=== PATIENT | male | born 1970 | race Caucasian/White ===

== ENCOUNTER 2022-06-04 04:04 | Inpatient (IN) | payer OTHER ==
[~2022-06-04] VITALS: Ht 175.3 cm; Wt 83.9 kg
[2022-06-04 06:48] LABS: HEMATOCRIT 44.1 % (36.7-47.1); MEAN CORPUSCULAR HEMOGLOBIN 30.7 uug (23.8-33.4); MEAN CORPUSCULAR VOLUME 93.1 fL (73.0-96.2); PLATELET COUNT (AUTO) 454 K/uL (152-348)
[2022-06-04 07:09] LABS: ETHANOL < 3 MG/DL (0-0)
[2022-06-04 07:16] LABS: ALANINE AMINOTRANSFERASE 35 U/L (16-63); ALKALINE PHOSPHATASE 98 U/L (50-136); ASPARTATE AMINOTRANSFERASE 21 U/L (15-37); BILIRUBIN,DIRECT 0.1 mg/dL (0.0-0.2); BILIRUBIN,TOTAL 0.3 mg/dL (0.2-1.0); CARBON DIOXIDE 30 mmol/L (21-32); CHLORIDE 104 mmol/L (98-107); CREATININE 0.9 mg/dL (0.6-1.3); GLUCOSE 103 mg/dL (74-106); TOTAL PROTEIN, SERUM 6.4 g/dL (6.4-8.2); UREA NITROGEN, BLOOD 11 mg/dL (7-18)
[2022-06-04 08:11] LABS: *BILIRUBIN,URIN NEGATIVE (NEGATIVE); *BLOOD, URINE NEGATIVE (NEGATIVE); *CLARITY,URINE CLEAR (CLEAR); *COLOR,URINE YELLOW (YELLOW); *KETONES,URINE NEGATIVE (NEGATIVE); *UROBILINOGEN,URINE 0.2 E.U./dl (NORMAL); LEUKOCYTE ESTERASE ,URINE NEGATIVE (NEGATIVE); NITRITE, URINE NEGATIVE (NEGATIVE); PH,URINE 6.5 (5.0-8.0); UGLUCOSE NEGATIVE (NEGATIVE)
[2022-06-04] MEDS: IV NORMAL SALINE 500 ML BAG IV ONE ×2 (08:15→10:29)
[2022-06-04 08:31] LABS: *AMPHETAMINE, URINE NEGATIVE (NEGATIVE); *CANNABINOID, URINE POSITIVE (NEGATIVE); *COCCAINE, URINE NEGATIVE (NEGATIVE); *OPIATE, URINE NEGATIVE (NEGATIVE); *PHENCYCLIDINE SCREEN,URINE NEGATIVE (NEGATIVE)
[2022-06-04 08:41] LABS: THYROID STIMULATING HORMONE 2.459 mIU/mL (0.358-3.740)
[2022-06-04] MEDS: THIAMINE HCL INJ 100 MG in IV DEXTROSE 5% 50 ML IV SCH (09:30)
[2022-06-04] MEDS: FOLIC ACID 1 MG in IV DEXTROSE 5% 50 ML IV SCH (09:30)
[2022-06-04] MEDS ORDERED: CEFTRIAXONE 1 G in IV DEXTROSE 5% 50 ML IV SCH (09:45)
[2022-06-04] MEDS ORDERED: CEFTRIAXONE /D5W 50ML IVPB **ER PYXIS IV ONE (10:30)
[2022-06-04] MEDS ORDERED: LORAZEPAM 2 MG/1 ML VIAL IM ONE (16:30)
[2022-06-04] MEDS ORDERED: LORAZEPAM 2 MG/1 ML VIAL ONE (16:36)
[2022-06-04 17:38] LABS: ACETAMINOPHEN < 2.0 ug/mL (10-30)
[2022-06-04] MEDS ORDERED: ACETAMINOPHEN 325 MG TABLET PO PRN (17:45)
[2022-06-04] MEDS ORDERED: IV 1/2NS 1000 ML 1,000 ML IV PRN (17:45)
[2022-06-04] MEDS ORDERED: HYDROCODONE/APAP 5-325MG TABLET PO PRN (17:45)
[2022-06-04] MEDS ORDERED: TEMAZEPAM 15 MG CAPSULE PO PRN (17:45)
[2022-06-04] MEDS ORDERED: ONDANSETRON 4 MG/2 ML VIAL IV PRN (17:45)
[2022-06-04] MEDS: LORAZEPAM 2 MG/1 ML VIAL IV PRN (18:24)
[2022-06-04 20:00] VITALS: BP 123/83
[2022-06-05 04:00] VITALS: BP 126/62
[2022-06-05] MEDS: PANTOPRAZOLE SODIUM 40 MG TABLET.DR PO SCH ×2 (06:43→09:08)
[2022-06-05 07:58] LABS: HEMATOCRIT 42.1 % (36.7-47.1); MEAN CORPUSCULAR HEMOGLOBIN 31.5 uug (23.8-33.4); MEAN CORPUSCULAR VOLUME 92.3 fL (73.0-96.2); PLATELET COUNT (AUTO) 485 K/uL (152-348)
[2022-06-05 08:23] LABS: BILIRUBIN,TOTAL 0.5 mg/dL (0.2-1.0); CREATININE 0.8 mg/dL (0.6-1.3); MAGNESIUM 2.3 mg/dL (1.8-2.4); PHOSPHOROUS 3.6 mg/dL (2.5-4.9); POTASSIUM 4.3 mmol/L (3.5-5.1); TOTAL PROTEIN, SERUM 6.3 g/dL (6.4-8.2)
[2022-06-05] MEDS: MULTIVITAMINS,THERAPEUTIC TABLET PO SCH (09:08)
[2022-06-05] MEDS: ASPIRIN 81 MG TAB.CHEW PO SCH (13:47)
[2022-06-05] MEDS: ENOXAPARIN SODIUM 40 MG/0.4 ML DISP.SYRIN SQ SCH (13:53)
[2022-06-05 15:55] VITALS: BP 104/71
[2022-06-05] MEDS: LORAZEPAM 2 MG/1 ML VIAL IV PRN (18:39)
[2022-06-05 20:00] VITALS: BP 101/59
[2022-06-05] MEDS: ATORVASTATIN 20 MG TABLET PO SCH (21:12)
[2022-06-06 04:00] VITALS: BP 105/65
[2022-06-06] MEDS: IV NS 1000 ML 1,000 ML IV PRN ×2 (05:12→23:33)
[2022-06-06 06:32] LABS: HEMATOCRIT 42.4 % (36.7-47.1); MEAN CORPUSCULAR HEMOGLOBIN 31.6 uug (23.8-33.4); MEAN CORPUSCULAR VOLUME 92.2 fL (73.0-96.2); PLATELET COUNT (AUTO) 477 K/uL (152-348)
[2022-06-06 07:04] LABS: CREATININE 0.9 mg/dL (0.6-1.3); MAGNESIUM 2.1 mg/dL (1.8-2.4); POTASSIUM 3.8 mmol/L (3.5-5.1)
[2022-06-06] MEDS: MULTIVITAMINS,THERAPEUTIC TABLET PO SCH (08:09)
[2022-06-06] MEDS: ASPIRIN 81 MG TAB.CHEW PO SCH (08:09)
[2022-06-06] MEDS: ENOXAPARIN SODIUM 40 MG/0.4 ML DISP.SYRIN SQ SCH (08:11)
[2022-06-06 11:56] VITALS: BP 100/66
[2022-06-06 15:17] VITALS: BP 105/94
[2022-06-06 20:00] VITALS: BP 118/83
[2022-06-06] MEDS: ATORVASTATIN 20 MG TABLET PO SCH (20:43)
[2022-06-07 04:00] VITALS: BP 122/72
[2022-06-07] MEDS: PANTOPRAZOLE SODIUM 40 MG TABLET.DR PO SCH (06:16)
[2022-06-07] MEDS: MULTIVITAMINS,THERAPEUTIC TABLET PO SCH (08:23)
[2022-06-07] MEDS: ASPIRIN 81 MG TAB.CHEW PO SCH (08:23)
[2022-06-07] MEDS: ENOXAPARIN SODIUM 40 MG/0.4 ML DISP.SYRIN SQ SCH (08:24)
[2022-06-07 11:55] VITALS: BP 110/72
[2022-06-07] MEDS: ATORVASTATIN 20 MG TABLET PO SCH (20:27)
[2022-06-07 20:32] VITALS: BP 128/85
[2022-06-08 04:50] VITALS: BP 122/82
[2022-06-08] MEDS: PANTOPRAZOLE SODIUM 40 MG TABLET.DR PO SCH (06:01)
[2022-06-08] MEDS: MULTIVITAMINS,THERAPEUTIC TABLET PO SCH (08:00)
[2022-06-08] MEDS: ASPIRIN 81 MG TAB.CHEW PO SCH (08:00)
[2022-06-08] MEDS: ENOXAPARIN SODIUM 40 MG/0.4 ML DISP.SYRIN SQ SCH (08:02)
[2022-06-08 11:15] VITALS: BP 106/73
[2022-06-08 15:25] VITALS: BP 109/70
[2022-06-08] MEDS: ATORVASTATIN 20 MG TABLET PO SCH (20:13)
[2022-06-08 20:21] VITALS: BP 118/78
[2022-06-08] MEDS ORDERED: QUETIAPINE FUMARATE 25 MG TABLET PO ONE (21:00)
[2022-06-09] MEDS: PANTOPRAZOLE SODIUM 40 MG TABLET.DR PO SCH (05:59)
[2022-06-09] MEDS: ASPIRIN 81 MG TAB.CHEW PO SCH (08:01)
[2022-06-09] MEDS: ENOXAPARIN SODIUM 40 MG/0.4 ML DISP.SYRIN SQ SCH (08:01)
[2022-06-09] MEDS: MULTIVITAMINS,THERAPEUTIC TABLET PO SCH (08:01)
[2022-06-09] MEDS ORDERED: QUET50TA PO (10:21)
[2022-06-09] MEDS: QUETIAPINE FUMARATE 25 MG TABLET PO SCH (10:47)
[2022-06-09 11:02] VITALS: BP 107/64
[2022-06-09 15:15] VITALS: BP 118/70
[2022-06-09 20:00] VITALS: BP 121/83
[2022-06-09] MEDS: ATORVASTATIN 20 MG TABLET PO SCH (20:57)
[2022-06-10] MEDS: PANTOPRAZOLE SODIUM 40 MG TABLET.DR PO SCH (06:04)
[2022-06-10 06:20] VITALS: BP 125/79
[2022-06-10] MEDS: MULTIVITAMINS,THERAPEUTIC TABLET PO SCH (08:01)
[2022-06-10] MEDS: ASPIRIN 81 MG TAB.CHEW PO SCH (08:01)
[2022-06-10] MEDS: QUETIAPINE FUMARATE 25 MG TABLET PO SCH (08:01)
[2022-06-10] MEDS: ENOXAPARIN SODIUM 40 MG/0.4 ML DISP.SYRIN SQ SCH (08:02)
[2022-06-10 11:02] VITALS: BP 127/61
[2022-06-10] MEDS: LORAZEPAM 2 MG/1 ML VIAL IV PRN (13:20)
[2022-06-10 15:20] VITALS: BP 125/67
[2022-06-10 20:01] VITALS: BP 103/75
[2022-06-10] MEDS: ATORVASTATIN 20 MG TABLET PO SCH ×2 (21:51→22:37)
[2022-06-11 04:00] VITALS: BP 122/79
[2022-06-11] MEDS: PANTOPRAZOLE SODIUM 40 MG TABLET.DR PO SCH (06:30)
[2022-06-11] MEDS: MULTIVITAMINS,THERAPEUTIC TABLET PO SCH (08:01)
[2022-06-11] MEDS: ASPIRIN 81 MG TAB.CHEW PO SCH (08:01)
[2022-06-11] MEDS: QUETIAPINE FUMARATE 25 MG TABLET PO SCH (08:01)
[2022-06-11] MEDS: ENOXAPARIN SODIUM 40 MG/0.4 ML DISP.SYRIN SQ SCH (08:02)
[2022-06-11 11:04] VITALS: BP 100/78
[2022-06-11 11:06] LABS: CALCITRIOL VIT D,1,25 DIHYDROX 52.1 pg/mL (24.8-81.5)
[2022-06-11] MEDS ORDERED: TEMA15CA PO ×2 (11:34→11:53)
[2022-06-11] MEDS ORDERED: QUET50TA PO (11:53)
== END 2022-06-11 13:15 | DRG 917 ==
LOC: ER 04:04 → TELE3 17:18 → MEDSURG3 19:44
PROVIDERS: ADMIT Internal Medicine; ATTEND Nurse Practitioner Acute Care
DX: T40.721A Poisoning by synthetic cannabinoids, accidental (unintentional), initial encounter (principal); G92.8 Other toxic encephalopathy; D72.829 Elevated white blood cell count, unspecified; E78.5 Hyperlipidemia, unspecified; E83.52 Hypercalcemia; E86.9 Volume depletion, unspecified; E87.5 Hyperkalemia; E88.09 Other disorders of plasma-protein metabolism, not elsewhere classified; F25.0 Schizoaffective disorder, bipolar type; K21.9 Gastro-esophageal reflux disease without esophagitis; F03.90 Unspecified dementia, unspecified severity, without behavioral disturbance, psychotic disturbance, mood disturbance, and anxiety; F12.10 Cannabis abuse, uncomplicated; Y92.89 Other specified places as the place of occurrence of the external cause
CPT/HCPCS: 36415; 70450; 71045; 82652; 83605; 83735; 83970; 84100; 84443; 84484; 85025; 85730; 87040; 87400; 93005; 93307; 93880; A4663; C1758; G0378; G0480; J0696; J1650; J2060; J3411; J3490; J7040; J7120